=== PATIENT | female | born 1995 | race Hispanic/Latino ===

== ENCOUNTER 2019-11-28 10:50 | Observation (INO) | payer BC, MEDICAID ==
[~2019-11-28] VITALS: Ht 162.6 cm; Wt 93.4 kg
[2019-11-28 12:14] VITALS: BP 120/72
== END 2019-11-28 12:13 | disposition home or self-care (01) ==
LOC: LDH 10:50
DX: O36.8130 Decreased fetal movements, third trimester, not applicable or unspecified (principal); Z3A.26 26 weeks gestation of pregnancy
CPT/HCPCS: 59025; 76819; G0378